=== PATIENT | female | born 1980 | race Two or more races ===

== ENCOUNTER 2016-06-04 20:44 | Observation (INO) | payer MEDICAID | END 2016-06-04 22:50 | disposition left against medical advice (07) | DRG 566 | LOC: LDRP 20:44 | PROVIDERS: ADMIT Specialist; ATTEND Specialist | DX: O42.913 Preterm premature rupture of membranes, unspecified as to length of time between rupture and onset of labor, third trimester (principal); Z3A.33 33 weeks gestation of pregnancy | CPT/HCPCS: 59025; 76805; 76815; G0378 ==

== ENCOUNTER 2017-10-29 11:19 | Emergency (ER) | payer SELFPAY ==
[~2017-10-29] VITALS: Ht 152.4 cm; Wt 102.1 kg
[2017-10-29 12:37] VITALS: BP 126/92
== END 2017-10-29 13:15 | disposition home or self-care (01) ==
LOC: ER 11:19
DX: O23.41 Unspecified infection of urinary tract in pregnancy, first trimester (principal); Z3A.00 Weeks of gestation of pregnancy not specified; Z98.51 Tubal ligation status
CPT/HCPCS: 36415; 84702

== ENCOUNTER 2019-06-27 09:30 | Emergency (ER) | payer SELFPAY ==
[~2019-06-27] VITALS: Ht 152.4 cm; Wt 99.8 kg
[2019-06-27 09:47] VITALS: BP 128/71
[2019-06-27] MEDS ORDERED: CLOTRIMAZOLE 1 % CREAM 15GM TOP ONE (10:00)
== END 2019-06-27 11:28 | disposition home or self-care (01) ==
LOC: EDBD 09:30 → ER 09:30
DX: K70.30 Alcoholic cirrhosis of liver without ascites (principal); L30.9 Dermatitis, unspecified; B35.9 Dermatophytosis, unspecified
CPT/HCPCS: 74176